=== PATIENT | male | born 1945 | race Caucasian/White ===

== ENCOUNTER 2016-11-06 09:11 | Emergency (ER) | payer OTHER ==
[~2016-11-06] VITALS: Ht 175.3 cm; Wt 65.4 kg
[~2016-11-06 09:11] MED LIST: AMLODIPINE BES2.5 MG PO; AMLODIPINE BESYL5 MG PO; ATORVASTATIN CA20 MG PO; BENAZEPRIL HCL40 MG PO; MORPHINE SULFAT10 M3 PO; PRILOSEC20 MG PO; ROXICODONE5 MG PO; TARCEVA PO
[2016-11-06 11:15] LABS: HEMATOCRIT 37.8 % (38.0-50.0); MCH 31.1 PG (29.0-34.0); MCHC 34.1 G/DL (30.0-36.0); MCV 91.1 FL (86-99); MEAN PLAT.VOLUME 9.3 uM^3 (9.0-12.4); PLATELET COUNT 252 K/uL (156-360); RBC DIS.WIDTH-CV 13.4 % (11.8-14.6); RBC DIS.WIDTH-SD 45.2 % (39-53); RED BLOOD COUNT 4.15 M/uL (4.00-5.50)
[2016-11-06 11:22] LABS: INTER. NORMALIZED RATIO 1.2; PROTHROMBIN TIME 12.8 SEC (10.2-12.9)
[2016-11-06 11:24] LABS: PTT 27.6 SEC (25-37)
[2016-11-06 15:24] VITALS: BP 103/66
== END 2016-11-06 15:25 | disposition home or self-care (01) ==
LOC: MIC 09:11
PROVIDERS: Physician Assistant
PROC: 0W9G3ZZ Drainage of Peritoneal Cavity, Percutaneous Approach (ICD-10-PCS; principal; 2016-11-06)
DX: R18.8 Other ascites (principal); C25.9 Malignant neoplasm of pancreas, unspecified; I10 Essential (primary) hypertension
CPT/HCPCS: 49083; 85027; 85610; 85730; 99281; 99284

== ENCOUNTER 2016-11-14 12:51 | Emergency (ER) | payer OTHER ==
[~2016-11-14] VITALS: Ht 175.3 cm; Wt 59.0 kg
[2016-11-14 15:18] VITALS: BP 121/87
[2016-11-15] MEDS ORDERED: ASPIR 8181 M1 PO (09:36)
[2016-11-15] MEDS ORDERED: BENAZEPRIL-HCT1 EAC5 PO (09:37)
[2016-11-15] MEDS ORDERED: DRONABINOL2.5 MG PO (09:40)
[2016-11-15] MEDS ORDERED: ACID CONTROLLER20 MG PO (09:41)
[2016-11-15] MEDS ORDERED: ANTI-DIARRHEA2 MG PO (09:41)
[2016-11-15] MEDS ORDERED: MIRTAZAPINE15 MG PO (09:42)
[2016-11-15] MEDS ORDERED: ATIVAN0.5 MG PO (09:42)
[2016-11-15] MEDS ORDERED: MS CONTIN,ORAMO15 M1 PO (09:43)
[2016-11-15] MEDS ORDERED: NYSTATIN100000 UN1 PO (09:44)
[2016-11-15] MEDS ORDERED: PRILOSEC20 MG PO (09:44)
[2016-11-15] MEDS ORDERED: ZUPLENZ4 MG PO (09:45)
[2016-11-15] MEDS ORDERED: ROXICODONE5 MG PO (09:47)
[2016-11-15] MEDS ORDERED: SAW PALMETTO160 MG PO (09:47)
[2016-11-15] MEDS ORDERED: NULYTELY SOLU4000 ML PO (09:47)
== END 2016-11-14 15:20 | disposition home or self-care (01) ==
LOC: EME 12:51
DX: R18.8 Other ascites (principal); C25.9 Malignant neoplasm of pancreas, unspecified; R11.2 Nausea with vomiting, unspecified; I10 Essential (primary) hypertension
CPT/HCPCS: 80048; 85027; 99281; 99284; J2270

== ENCOUNTER → 2016-11-15 | Outpatient (CLI) | payer OTHER ==
[~2016-11-15] MED LIST changes: +ACID CONTROLLER20 MG PO; +ANTI-DIARRHEA2 MG PO; +ASPIR 8181 M1 PO; +ATIVAN0.5 MG PO; +BENAZEPRIL-HCT1 EAC5 PO; +DRONABINOL2.5 MG PO; +MIRTAZAPINE15 MG PO; +MS CONTIN,ORAMO15 M1 PO; +NULYTELY SOLU4000 ML PO; +NYSTATIN100000 UN1 PO; +SAW PALMETTO160 MG PO; +TYLENOL EXTRA500 MG PO; +ZUPLENZ4 MG PO
== END | disposition home or self-care (01) ==
LOC: RAD 13:16
PROC: 0W9G3ZZ Drainage of Peritoneal Cavity, Percutaneous Approach (ICD-10-PCS; principal; 2016-11-15)
DX: R18.8 Other ascites (principal)
CPT/HCPCS: 49083

== ENCOUNTER 2016-11-17 11:25 | Inpatient (IN) | payer OTHER ==
[~2016-11-17] VITALS: Ht 175.3 cm; Wt 63.1 kg
[~2016-11-17 11:25] MED LIST changes: -TYLENOL EXTRA500 MG PO
[2016-11-17 13:01] LABS: EOSINOPHIL (%) 0 % (0-5); HEMATOCRIT 37.9 % (38.0-50.0); IMMATURE GRANULOCYTE (%) 1.2 % (0.0-0.7); IMMATURE GRANULOCYTE COUNT 0.1 K/uL; LYMPHOCYTE COUNT 0.5 K/uL (1.0-2.8); MCH 31.2 PG (29.0-34.0); MCHC 35.1 G/DL (30.0-36.0); MEAN PLAT.VOLUME 10.1 uM^3 (9.0-12.4); MONOCYTE (%) 6.2 % (3-12); MONOCYTE COUNT 0.7 K/uL (0-0.8); NEUTROPHIL (%) 88.3 % (45-76); PLATELET COUNT 274 K/uL (156-360); RBC DIS.WIDTH-CV 14.2 % (11.8-14.6); RBC DIS.WIDTH-SD 44.9 % (39-53); RED BLOOD COUNT 4.26 M/uL (4.00-5.50); WHITE BLOOD COUNT 11.4 K/uL (4.1-10.2)
[2016-11-17 13:07] LABS: INTER. NORMALIZED RATIO 1.2; PROTHROMBIN TIME 13.6 SEC (10.2-12.9)
[2016-11-17 13:09] LABS: CHLORIDE 79 mEq/L (99-109); PTT 26.1 SEC (25-37)
[2016-11-17 13:11] LABS: GLUCOSE 148 mg/dL (70-99)
[2016-11-17 13:13] LABS: ANION GAP 16 MEQ/L (2-14); TOTAL BILIRUBIN 0.5 mg/dL (0.0-1.0)
[2016-11-17 13:15] LABS: ALKALINE PHOSPHATASE 162 IU/L (3-129)
[2016-11-17 13:18] LABS: CREATINE KINASE 33 IU/L (1-294); TOTAL CK 33 IU/L (1-294); TROP-I INTERPRETATION NEGATIVE; TROPONIN-I < 0.01 ng/mL (0.0-0.30)
[2016-11-17 13:19] LABS: GFR ESTIMATE (CALCULATED) 46 mL/min/; UREA NITROGEN (BUN) 88 mg/dL (9-23)
[2016-11-17 13:20] LABS: POTASSIUM 6.2 mEq/L (3.7-5.4); SODIUM 117 mEq/L (136-147)
[2016-11-17 13:24] LABS: CK-MB 1.6 ng/mL (0.0-4.9)
[2016-11-17] MEDS ORDERED: TYLENOL EXTRA500 MG PO (15:46)
[2016-11-17 16:55] VITALS: BP 127/72
[2016-11-17 17:03] VITALS: BP 127/72
[2016-11-17 18:20] LABS: ANION GAP 10 MEQ/L (2-14); CHLORIDE 84 MEQ/L (99-109); GFR ESTIMATE (CALCULATED) > 59 mL/min/; GLUCOSE 160 mg/dL (70-99); POTASSIUM 5.3 MEQ/L (3.7-5.4); SAMPLE HEMOLYSIS CHECK 0; SAMPLE ICTERIC CHECK 0; SAMPLE LIPEMIA CHECK 0; UREA NITROGEN (BUN) 77 mg/dL (9-23)
[2016-11-17 18:22] LABS: SODIUM 118 MEQ/L (136-147)
[2016-11-17 20:50] VITALS: BP 100/70
[2016-11-17 23:37] LABS: GLUCOSE 131 mg/dL (70-99)
[2016-11-17 23:39] VITALS: BP 103/73
[2016-11-17 23:41] LABS: GFR ESTIMATE (CALCULATED) > 59 mL/min/; UREA NITROGEN (BUN) 80 mg/dL (9-23)
[2016-11-17 23:48] LABS: CHLORIDE 85 mEq/L (99-109); POTASSIUM 5.8 mEq/L (3.7-5.4); SODIUM 120 mEq/L (136-147)
[2016-11-18] VITALS (14 sets, daily range): BP systolic 85–129; BP diastolic 54–76
[2016-11-18 00:11] LABS: ANION GAP 14 MEQ/L (2-14)
[2016-11-18 01:43] LABS: CHLORIDE 84 mEq/L (99-109); POTASSIUM 5.7 mEq/L (3.7-5.4); SODIUM 121 mEq/L (136-147)
[2016-11-18 01:44] LABS: GLUCOSE 131 mg/dL (70-99)
[2016-11-18 01:46] LABS: ANION GAP 14 MEQ/L (2-14)
[2016-11-18 01:48] LABS: GFR ESTIMATE (CALCULATED) > 59 mL/min/
[2016-11-18 01:49] LABS: UREA NITROGEN (BUN) 80 mg/dL (9-23)
[2016-11-18 06:13] LABS: HEMATOCRIT 35.1 % (38.0-50.0); MCH 30.9 PG (29.0-34.0); MCHC 33.9 G/DL (30.0-36.0); MCV 91.2 FL (86-99); MEAN PLAT.VOLUME 10.6 uM^3 (9.0-12.4); PLATELET COUNT 231 K/uL (156-360); RBC DIS.WIDTH-CV 14.3 % (11.8-14.6); RBC DIS.WIDTH-SD 46.6 % (39-53); RED BLOOD COUNT 3.85 M/uL (4.00-5.50); WHITE BLOOD COUNT 7.5 K/uL (4.1-10.2)
[2016-11-18 07:02] LABS: ANION GAP 18 MEQ/L (2-14); CHLORIDE 83 MEQ/L (99-109); GFR ESTIMATE (CALCULATED) 58 mL/min/; GLUCOSE 134 mg/dL (70-99); POTASSIUM 5.9 MEQ/L (3.7-5.4); SAMPLE HEMOLYSIS CHECK 0; SAMPLE ICTERIC CHECK 0; SAMPLE LIPEMIA CHECK 0; SODIUM 122 MEQ/L (136-147); UREA NITROGEN (BUN) 80 mg/dL (9-23); URIC ACID 9.4 mg/dL (3.1-9.2)
[2016-11-18 10:31] LABS: ANION GAP 14 MEQ/L (2-14); CHLORIDE 85 MEQ/L (99-109); GFR ESTIMATE (CALCULATED) > 59 mL/min/; GLUCOSE 137 mg/dL (70-99); POTASSIUM 5.6 MEQ/L (3.7-5.4); SAMPLE HEMOLYSIS CHECK 0; SAMPLE ICTERIC CHECK 0; SAMPLE LIPEMIA CHECK 0; UREA NITROGEN (BUN) 84 mg/dL (9-23)
[2016-11-18 10:42] LABS: SODIUM 119 MEQ/L (136-147)
[2016-11-18 11:44] LABS: HPCA INDEX 0.11
[2016-11-18 15:09] LABS: ANION GAP 18 MEQ/L (2-14); CHLORIDE 84 MEQ/L (99-109); GFR ESTIMATE (CALCULATED) 54 mL/min/; GLUCOSE 131 mg/dL (70-99); POTASSIUM 5.5 MEQ/L (3.7-5.4); SAMPLE HEMOLYSIS CHECK 0; SAMPLE ICTERIC CHECK 0; SAMPLE LIPEMIA CHECK 0; UREA NITROGEN (BUN) 85 mg/dL (9-23)
[2016-11-18 15:16] LABS: SODIUM 119 MEQ/L (136-147)
[2016-11-18 17:00] LABS: ANION GAP 13 MEQ/L (2-14); CHLORIDE 92 MEQ/L (99-109); GFR ESTIMATE (CALCULATED) > 59 mL/min/; GLUCOSE 96 mg/dL (70-99); POTASSIUM 5.5 MEQ/L (3.7-5.4); SAMPLE HEMOLYSIS CHECK 0; SAMPLE ICTERIC CHECK 0; SAMPLE LIPEMIA CHECK 0; SODIUM 124 MEQ/L (136-147); UREA NITROGEN (BUN) 80 mg/dL (9-23)
[2016-11-18 17:21] LABS: METH RESISTANT S AUREUS PCR NEGATIVE (NEGATIVE)
[2016-11-18 18:02] LABS: PROBE CHECK PASS; SPECIMEN PROCESSING CONTROL PASS
[2016-11-18 18:48] LABS: ANION GAP 12 MEQ/L (2-14); CHLORIDE 91 MEQ/L (99-109); GFR ESTIMATE (CALCULATED) > 59 mL/min/; GLUCOSE 106 mg/dL (70-99); POTASSIUM 5.7 MEQ/L (3.7-5.4); SAMPLE HEMOLYSIS CHECK 0; SAMPLE ICTERIC CHECK 0; SAMPLE LIPEMIA CHECK 0; SODIUM 122 MEQ/L (136-147); UREA NITROGEN (BUN) 77 mg/dL (9-23)
[2016-11-18 22:12] LABS: HEMATOCRIT 34.4 % (38.0-50.0); MCV 93.7 FL (86-99)
[2016-11-18 22:39] LABS: INTER. NORMALIZED RATIO 1.3; PROTHROMBIN TIME 14.6 SEC (10.2-12.9)
[2016-11-18 22:41] LABS: POTASSIUM 5.4 mEq/L (3.7-5.4); SODIUM 126 mEq/L (136-147)
[2016-11-18 22:42] LABS: GLUCOSE 112 mg/dL (70-99); PTT 29.1 SEC (25-37)
[2016-11-18 22:44] LABS: ANION GAP 12 MEQ/L (2-14)
[2016-11-18 22:46] LABS: GFR ESTIMATE (CALCULATED) > 59 mL/min/
[2016-11-18 22:47] LABS: CHLORIDE 94 mEq/L (99-109); UREA NITROGEN (BUN) 78 mg/dL (9-23)
[2016-11-19] VITALS (18 sets, daily range): BP systolic 79–100; BP diastolic 49–64
[2016-11-19 00:35] LABS: HEMATOCRIT 23.8 % (38.0-50.0); MCH 31.3 PG (29.0-34.0); MCHC 34.9 G/DL (30.0-36.0); MCV 89.8 FL (86-99); MEAN PLAT.VOLUME 10.3 uM^3 (9.0-12.4); PLATELET COUNT 104 K/uL (156-360); RBC DIS.WIDTH-CV 14.1 % (11.8-14.6); RBC DIS.WIDTH-SD 45.6 % (39-53); RED BLOOD COUNT 2.65 M/uL (4.00-5.50)
[2016-11-19 05:05] LABS: MCH 30.7 PG (29.0-34.0); MCHC 34.8 G/DL (30.0-36.0); MCV 88.3 FL (86-99); MEAN PLAT.VOLUME 9.9 uM^3 (9.0-12.4); PLATELET COUNT 133 K/uL (156-360); RBC DIS.WIDTH-SD 44.4 % (39-53); RED BLOOD COUNT 2.83 M/uL (4.00-5.50); WHITE BLOOD COUNT 1.2 K/uL (4.1-10.2)
[2016-11-19 05:08] LABS: CHLORIDE 98 mEq/L (99-109); POTASSIUM 5.2 mEq/L (3.7-5.4); SODIUM 127 mEq/L (136-147)
[2016-11-19 05:09] LABS: MAGNESIUM 1.5 mg/dL (1.3-2.7)
[2016-11-19 05:11] LABS: GLUCOSE 101 mg/dL (70-99)
[2016-11-19 05:12] LABS: ANION GAP 9 MEQ/L (2-14)
[2016-11-19 05:14] LABS: TOTAL BILIRUBIN 0.8 mg/dL (0.0-1.0)
[2016-11-19 05:15] LABS: GFR ESTIMATE (CALCULATED) > 59 mL/min/
[2016-11-19 05:16] LABS: ALKALINE PHOSPHATASE 80 IU/L (3-129); UREA NITROGEN (BUN) 64 mg/dL (9-23)
[2016-11-19 05:47] LABS: ABS NEUTROPHIL COUNT 0.7; ANISOCYTOSIS 1+; BAND NEUTROPHILS 38.4 % (0-8.0); EOSINOPHIL ABS CT 0; EOSINOPHILS 0.9 % (0-5.0); INSTRUMENT ABS NEUTROPHIL CT 0.9 K/uL; LYMPHOCYTES 16.1 % (15.0-45.0); MACROCYTES 1+; METAMYELOCYTES 3.6 %; MYELOCYTES 2.7 %; NUCLEATED RBC'S 1.8; PLAT.SUFFICIENCY DECREASED; POIKILOCYTOSIS 1+; SEG.NEUTROPHILS 16.9 % (46.0-76.0); SMUDGE CELLS 6.3
== END 2016-11-20 11:16 | DRG 682 ==
LOC: EME 11:25 → EDOF 15:25 → 4WEST 15:25 → 5EAST 15:25 → ENRESERV 15:27 → 5EAST 16:12 → ENRESERV 11-18 14:23 → 5EAST 11-18 14:24 → ENRESERV 11-18 14:28 → 4WEST 11-18 15:01 → ENRESERV 11-19 17:10 → 4WEST 11-19 18:26
PROVIDERS: Emergency Medicine; Internal Medicine; Internal Medicine Critical Care Medicine; Internal Medicine Nephrology
DX: N17.9 Acute kidney failure, unspecified (principal); R57.1 Hypovolemic shock; J69.0 Pneumonitis due to inhalation of food and vomit; G93.41 Metabolic encephalopathy; J96.01 Acute respiratory failure with hypoxia; E44.0 Moderate protein-calorie malnutrition; R64 Cachexia; Z68.1 Body mass index [BMI] 19.9 or less, adult; E87.1 Hypo-osmolality and hyponatremia; E87.5 Hyperkalemia; C25.9 Malignant neoplasm of pancreas, unspecified; C78.6 Secondary malignant neoplasm of retroperitoneum and peritoneum; R18.0 Malignant ascites; K31.1 Adult hypertrophic pyloric stenosis; E87.2 Acidosis; D63.8 Anemia in other chronic diseases classified elsewhere; F43.10 Post-traumatic stress disorder, unspecified; G89.3 Neoplasm related pain (acute) (chronic); K92.0 Hematemesis; I10 Essential (primary) hypertension; K21.9 Gastro-esophageal reflux disease without esophagitis; Z51.5 Encounter for palliative care; Z66 Do not resuscitate; F32.9 Major depressive disorder, single episode, unspecified; Z79.82 Long term (current) use of aspirin; Z80.0 Family history of malignant neoplasm of digestive organs; Z92.21 Personal history of antineoplastic chemotherapy
CPT/HCPCS: 49083; 71010; 71250; 71275; 74174; 74176; 80048; 80048 91; 80053; 82436; 82533 91; 82550; 82553; 82803; 83605; 83735; 83930; 83935; 84100; 84300; 84443; 84484; 84550; 85014; 85018; 85025; 85027; 85610; 85730; 86803; 87040; 87070; 87205; 87641; 93005; 94002; 94799; 99281; 99285; C9113; J0692; J1170; J1630; J1644; J1815; J2060; J2270; J2405; J2543; J2765; J2997; J7030; J7042; J7050; P9047; S0028